=== PATIENT | female | born 1950 | race Caucasian/White ===

== ENCOUNTER 2020-01-27 13:42 | Emergency (ER) | payer MEDICARE ==
[~2020-01-27] VITALS: Ht 152.4 cm; Wt 45.8 kg
[~2020-01-27 13:42] MED LIST: ALBU90OI INH; DOXY100 PO; ERGO400 PO; HYDACE5 PO; NITR100CA PO; PHENA200 PO
[2020-01-27] MEDS ORDERED: Keflex500 MG PO (15:48)
== END 2020-01-27 16:00 | disposition home or self-care (01) ==
LOC: ER 13:42
DX: L02.511 Cutaneous abscess of right hand (principal); L03.113 Cellulitis of right upper limb; F17.210 Nicotine dependence, cigarettes, uncomplicated; Z23 Encounter for immunization; Z88.5 Allergy status to narcotic agent
CPT/HCPCS: 90471; 90714; 99282-25